=== PATIENT | female | born 1980 | race Caucasian/White ===

== ENCOUNTER 2016-11-09 23:55 | Emergency (ER) | payer MEDICAID ==
[2016-11-10 00:10] VITALS: TEMP 98.1
--- NOTE | 2016-11-10 01:10 | C.PDOC ---
History Of Present Illness Patient presents to the emergency room with complaints of chest discomfort and shortness of breath which began 1 hr before arrival. Patient states that she currently feels fine and that the symptoms have resolved. Patient currently denies chest pain, palpitations, shortness of breath, headaches, dizziness, fever, chills, nausea, vomiting, or any other complaints. Time Seen by Provider: 11/10/16 01:09 Chief Complaint (Nursing): Chest Pain History Per: Patient History/Exam Limitations: no limitations Onset/Duration Of Symptoms: Hrs (1) Current Symptoms Are (Timing): Still Present Severity: Mild Pain Scale Rating Of: 4 Quality: Other (Discomfort). denies: "Pain" Associated Symptoms: denies: Nausea Modifying Factors: None Exacerbating Factors: None Alleviating Factors: None Recent travel outside of the [place]: No Past Medical History Reviewed: Historical Data, Nursing Documentation, Vital Signs Vital Signs: Last Vital Signs Temp 98.1 F 11/10/16 00:07 Pulse 67 11/10/16 02:22 Resp 16 11/10/16 02:22 BP 107/64 11/10/16 02:22 Pulse Ox 100 11/10/16 02:22 Family History: States: Unknown Family Hx - Social History Hx Alcohol Use: No Hx Substance Use: No - Immunization History Hx Tetanus Toxoid Vaccination: Yes Hx Influenza Vaccination: Yes Hx Pneumococcal Vaccination: No Review Of Systems Constitutional: Negative for: Fever, Chills Cardiovascular: Positive for: Other (Chest discomfort that has currently resolved.). Negative for: Chest Pain, Palpitations Respiratory: Positive for: Shortness of Breath (Currently resolved) Gastrointestinal: Negative for: Nausea, Vomiting Neurological: Negative for: Headache, Dizziness Physical Exam - Physical Exam Appears: Non-toxic, Other (Anxious) Skin: Warm, Dry, No Rash Neck: Normal ROM, No Midline Cervical Tenderness, No Paracervical Tenderness, Supple Chest: Symmetrical, No Tenderness Cardiovascular: Rhythm Regular Respiratory: No Rales, No Rhonchi, No Wheezing Gastrointestinal/Abdominal: Soft, No Tenderness, No Guarding, No Rebound Back: No CVA Tenderness, No Vertebral Tenderness Extremity: Normal ROM, No Tenderness Neurological/Psych: Oriented x3, Normal Speech Gait: Steady ED Course And Treatment - Laboratory Results Result Diagrams: 11/10/16 01:25 11/10/16 01:25 ECG: Interpreted By Me, Viewed By Me ECG Rhythm: Nonspecific Changes O2 Sat by Pulse Oximetry: 99 Pulse Ox Interpretation: Normal Progress Note: cardiac work up, asa,. Upon provider reevaluation patient is feeling better, is medically stable, and requires no further treatment in the ED at this time. Patient will be discharged home with Rx for . Counseling was provided and all questions were answered regarding diagnosis and need for follow up with the referred clinic. There is agreement to discharge plan. Return if symptoms persist or worsen. Reevaluation Time: 02:23 Reassessment Condition: Improved Medical Decision Making Medical Decision Making: I considered the following diagnoses: acute coronary syndrome, pulmonary embolism, lower respiratory infection, aortic dissection/aneurysm, pneumothorax , pericarditis, esophagitis/GERD, zoster and esophageal rupture but found them to be unlikely based on the history, physical exam, and diagnostics. My conclusions regarding the unlikely diagnoses were based on: the absence of significant EKG abnormalities, the lack of suggestive x-ray findings, the absence of significant abnormalities on cardiac monitoring, the absence of asymmetric pulses. Pt feels fine, cp free and wants to go home Disposition Counseled Patient/Family Regarding: Studies Performed, Diagnosis, Need For Followup - Disposition Referrals: Macrina Montenegro FNP [Advanced Practice Nurse] - Disposition: HOME/ ROUTINE Disposition Time: 01:09 Condition: FAIR Additional Instructions: Please return if symptoms recur Instructions: Chest Pain (DC) - Clinical Impression Clinical Impression: Chest discomfort - Scribe Statement The provider has reviewed the documentation as recorded by the Scribe Shankar Alfred Provider Scribe Attestation: All medical record entries made by the Scribe were at my direction and personally dictated by me. I have reviewed the chart and agree that the record accurately reflects my personal performance of the history, physical exam, medical decision making, and the department course for this patient. I have also personally directed, reviewed, and agree with the discharge instructions and disposition.
[2016-11-10] MEDS ORDERED: Aspirin 325 mg EC Tablets PO STA (01:14)
[2016-11-10 01:29] LABS: BASO # 0.1 K/uL (0.0-0.2); BASO % 1.1 % (0.0-2.0); EOS # 0.2 K/uL (0.0-0.7); EOS % 3.1 % (0.0-4.0); LYMPH # 2.9 K/uL (1.0-4.3); LYMPH % 48.4 % (20.0-40.0); MEAN CELL VOLUME 88.3 fL (81.0-99.0); MEAN CORPUSCULAR HEMOGLOBIN 29.1 pg (27.0-31.0); MEAN CORPUSCULAR HGB CONC 32.9 g/dL (33.0-37.0); MEAN PLATELET VOLUME 8.6 fL (7.2-11.7); MONO # 0.4 K/uL (0.0-0.8); RED CELL DISTRIBUTION WIDTH 12.4 % (11.5-14.5); WHITE BLOOD COUNT 5.9 K/uL (4.8-10.8)
[2016-11-10 01:31] LABS: RBC URINE 1 /hpf (0-3); URINE BILIRUBIN NEGATIVE (NEGATIVE); URINE COLOR Straw (YELLOW); URINE GLUCOSE (UA) NORMAL (Normal); URINE KETONE NEGATIVE (NEGATIVE); URINE LEUKOCYTE ESTERASE NEG Leu/uL (Negative); URINE PROTEIN NEGATIVE (NEGATIVE); URINE UROBILINOGEN NORMAL mg/dL (0.2-1.0); WBC URINE < 1 /hpf (0-5)
[2016-11-10 01:38] LABS: URINE BLOOD NEGATIVE (NEGATIVE)
[2016-11-10 01:55] LABS: ALB/GLOB RATIO 1.3 (1.0-2.1); ALKALINE PHOSPHATASE 44 U/L (38-126); ALT/SGPT 27 U/L (9-52); AST/SGOT 26 U/L (14-36); BILIRUBIN,TOTAL 0.2 mg/dL (0.2-1.3); BLOOD UREA NITROGEN 12 mg/dL (7-17); CALCIUM 8.6 mg/dl (8.6-10.4); CARBON DIOXIDE 21 mmol/L (22-30); CHLORIDE 99 mmol/L (98-107); GFR AFRICAN-AMERICAN > 60; GLUCOSE,RANDOM 99 mg/dL (65-105); POTASSIUM 4.1 mmol/L (3.6-5.2); SODIUM 137 mmol/L (132-148); TOTAL PROTEIN 7.5 g/dL (6.3-8.3)
[2016-11-10 02:22] VITALS: BP 107/64; PULSE 67; RESP 16
[2016-11-10 02:23] VITALS: O2SAT 99
--- NOTE | 2016-11-13 15:29 | CARD ---
APPROVED REPORT EKG Measurement Heart [id number] ID [id number] <Conclusion> Normal sinus rhythm Low voltage QRS Borderline ECG
== END 2016-11-10 02:45 | disposition home or self-care (01) ==
LOC: C.ER 23:55
DX: R07.89 Other chest pain (principal)

== ENCOUNTER 2016-12-28 12:47 | Emergency (ER) | payer MEDICAID ==
[2016-12-28] MEDS ORDERED: Morphine 4 MG/ML VIAL ONE (17:20)
--- NOTE | 2016-12-28 22:14 | CT ---
CT abdomen and pelvis with IV contrast Indication: Right lower quadrant pain Technique: Contiguous axial images of the abdomen and pelvis. Coronal and Sagittal reformats generated and reviewed. Oral contrast was administered. [address] exam was performed using 1 or more of the falling dose reduction techniques: Automated exposure control, adjustment of the MAA and/or kV according to patient size, and/or use of iterative reconstruction technique. Radiation dose: Total exam DLP = 302.89 MGy-cm. Comparison: None available Findings: No visible consolidation, pleural effusion, or pneumothorax. Small hiatal hernia. Punctate hepatic calcifications, likely granulomas. The liver, spleen, kidneys, pancreas, adrenal glands, and gallbladder appear unremarkable. The stomach is nondistended. The bowel loops appear within normal limits of caliber without evidence of intestinal obstruction. The appendix appears within normal limits of caliber. No secondary signs of acute appendicitis. There is no definite free air. Uterus is present. The urinary bladder appears unremarkable. No acute osseous abnormality is detected. Impression: No acute findings.
[2016-12-28 23:50] LABS: BASO % 0.3 % (0.0-2.0); EOS # 0.1 K/uL (0.0-0.7); EOS % 0.9 % (0.0-4.0); HEMATOCRIT 40.1 % (34.0-47.0); LYMPH % 9.4 % (20.0-40.0); MEAN CELL VOLUME 89.9 fL (81.0-99.0); MEAN CORPUSCULAR HEMOGLOBIN 29.5 pg (27.0-31.0); MEAN CORPUSCULAR HGB CONC 32.8 g/dL (33.0-37.0); MEAN PLATELET VOLUME 8.6 fL (7.2-11.7); MONO # 0.4 K/uL (0.0-0.8); MONO % 4.2 % (0.0-10.0); PLATELET COUNT 301 K/uL (130-400); RED CELL DISTRIBUTION WIDTH 12.6 % (11.5-14.5); WHITE BLOOD COUNT 10.4 K/uL (4.8-10.8)
[2016-12-29 00:39] LABS: ALB/GLOB RATIO 1.9 (1.0-2.1); ALKALINE PHOSPHATASE 53 U/L (38-126); ALT/SGPT 39 U/L (9-52); AST/SGOT 38 U/L (14-36); BILIRUBIN,TOTAL 0.9 mg/dL (0.2-1.3); BLOOD UREA NITROGEN 8 mg/dL (7-17); CALCIUM 9.1 mg/dl (8.6-10.4); CARBON DIOXIDE 24 mmol/L (22-30); CHLORIDE 99 mmol/L (98-107); GFR AFRICAN-AMERICAN > 60; GLUCOSE,RANDOM 84 mg/dL (65-105); POTASSIUM 3.6 mmol/L (3.6-5.2); SODIUM 136 mmol/L (132-148); TOTAL PROTEIN 8.9 g/dL (6.3-8.3)
[2016-12-29 06:15] LABS: URINE BILIRUBIN NEGATIVE (NEGATIVE); URINE BLOOD 1+ (NEGATIVE); URINE COLOR STRAW (YELLOW); URINE GLUCOSE (UA) Normal (Normal); URINE KETONE NEGATIVE (NEGATIVE)
[2016-12-29 06:16] LABS: URINE PROTEIN NEGATIVE (NEGATIVE)
[2016-12-29 06:17] LABS: RBC URINE 2 /hpf (0-3); URINE LEUKOCYTE ESTERASE Negative Leu/uL (Negative); URINE UROBILINOGEN Normal mg/dL (0.2-1.0)
[2016-12-29 06:18] LABS: WBC URINE < 1 /hpf (0-5)
[2016-12-29 08:58] LABS: EOSINOPHIL 2 % (0-4); NEUTROPHIL 83 % (50-75); TOTAL CELLS COUNTED 100
== END 2016-12-28 19:30 | disposition home or self-care (01) ==
LOC: C.ER 12:47
DX: R10.31 Right lower quadrant pain (principal)
CPT/HCPCS: 74177; 80053; 81001; 83690; 84703; 85025; 85610; 85730; 87086; 96374; 96375; 96376; 99281; J1885; J2270; J2405; J7040; Q9967